=== PATIENT | male | born 1995 | race Caucasian/White ===

== ENCOUNTER 2017-04-20 17:00 | Emergency (ER) | payer OTHER ==
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
--- NOTE | 2017-04-20 19:14 | ED ORDER SUMMARY ---
..... Patient: GAYATRI AYALA OrderSheet [facility] VisitID: [id number] [place] [address] 21y, M Registration Date/Time: 04/20/2017 ORDER SHEET Weight: 47.6 kg (stated) Allergies: Penicillins GENERAL ORDERS: Shoulder 2V or more Left Urgent (17:07 04/20/2017 HBivens A.R.N.P.) (Ack 17:13 LNations ER Tech1) (17:24 DDean R.N.) Chest 1V Urgent (17:07 04/20/2017 HBivens A.R.N.P.) (Ack 17:13 LNations ER Tech1) (17:24 DDean R.N.) CBC w Diff Urgent (17:08 04/20/2017 HBivens A.R.N.P.) (Ack 17:13 LNations ER Tech1) (17:24 DDean R.N.) CMP Urgent (17:08 04/20/2017 HBivens A.R.N.P.) (Ack 17:13 LNations ER Tech1) (17:24 DDean R.N.) Suture Set-up: (17:08 04/20/2017 HBivens A.R.N.P.) (Ack 17:13 LNations ER Tech1) (17:24 DDean R.N.) MEDICATION ORDERS: Lidocaine Injection 1% plain (NOW) (17:08 04/20/2017 HBivens A.R.N.P.) (Ack 17:19 JBoardley R.N.) (17:26 DDean R.N.) Tdap IM 0.5 mL (NOW) (17:43 04/20/2017 HBivens A.R.N.P.) (17:51 DDean R.N.) Hydrocodone-APAP PO 5/325 mg (NOW, HIGH ALERT MEDICATION) (19:04 04/20/2017 HBivens A.R.N.P.) (19:44 DDean R.N.) IV FLUIDS: IV NS : initial bolus 1000 mL (1000 mL/hr), then none - (NOW) (17:07 04/20/2017 HBivens A.R.N.P.) (Ack 17:19 JBoardley R.N.) (17:25 DDean R.N.) IV Saline Lock (17:08 04/20/2017 HBivens A.R.N.P.) (Ack 17:19 JBoardley R.N.) (17:24 DDean R.N.) Zofran IV 4 mg (NOW) (17:42 04/20/2017 HBivens A.R.N.P.) (17:49 DDean R.N.) Ancef IV 1 gm/50mL (NOW) (17:42 04/20/2017 HBivens A.R.N.P.) (17:52 DDean R.N.) Dilaudid IV 0.5 mg (HIGH ALERT MEDICATION, NOW) (17:42 04/20/2017 HBivens A.R.N.P.) (17:50 DDean R.N.) Toradol IV 30 mg (NOW) (19:03 04/20/2017 HBivens A.R.N.P.) (Cancelled: Other19:44 DDean R.N.) ORDER SHEET NOTES: [Electronically signed by Lisa Calixto R.N. (19:46 04/20/2017)] [Electronically signed by Britt ChisholmR.N.P. (20:38 04/20/2017)] [Electronically locked/signed by Lisa Calixto R.N. (19:46 04/20/2017)]
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
--- NOTE | 2017-04-20 19:14 | ED ORDER SUMMARY ---
..... Patient: GAYATRI AYALA OrderSheet [facility] VisitID: [id number] [place] [address] 21y, M Registration Date/Time: 04/20/2017 ORDER SHEET Weight: 47.6 kg (stated) Allergies: Penicillins GENERAL ORDERS: Shoulder 2V or more Left Urgent (17:07 04/20/2017 HBivens A.R.N.P.) (Ack 17:13 LNations ER Tech1) (17:24 DDean R.N.) Chest 1V Urgent (17:07 04/20/2017 HBivens A.R.N.P.) (Ack 17:13 LNations ER Tech1) (17:24 DDean R.N.) CBC w Diff Urgent (17:08 04/20/2017 HBivens A.R.N.P.) (Ack 17:13 LNations ER Tech1) (17:24 DDean R.N.) CMP Urgent (17:08 04/20/2017 HBivens A.R.N.P.) (Ack 17:13 LNations ER Tech1) (17:24 DDean R.N.) Suture Set-up: (17:08 04/20/2017 HBivens A.R.N.P.) (Ack 17:13 LNations ER Tech1) (17:24 DDean R.N.) MEDICATION ORDERS: Lidocaine Injection 1% plain (NOW) (17:08 04/20/2017 HBivens A.R.N.P.) (Ack 17:19 JBoardley R.N.) (17:26 DDean R.N.) Tdap IM 0.5 mL (NOW) (17:43 04/20/2017 HBivens A.R.N.P.) (17:51 DDean R.N.) Hydrocodone-APAP PO 5/325 mg (NOW, HIGH ALERT MEDICATION) (19:04 04/20/2017 HBivens A.R.N.P.) (19:44 DDean R.N.) IV FLUIDS: IV NS : initial bolus 1000 mL (1000 mL/hr), then none - (NOW) (17:07 04/20/2017 HBivens A.R.N.P.) (Ack 17:19 JBoardley R.N.) (17:25 DDean R.N.) IV Saline Lock (17:08 04/20/2017 HBivens A.R.N.P.) (Ack 17:19 JBoardley R.N.) (17:24 DDean R.N.) Zofran IV 4 mg (NOW) (17:42 04/20/2017 HBivens A.R.N.P.) (17:49 DDean R.N.) Ancef IV 1 gm/50mL (NOW) (17:42 04/20/2017 HBivens A.R.N.P.) (17:52 DDean R.N.) Dilaudid IV 0.5 mg (HIGH ALERT MEDICATION, NOW) (17:42 04/20/2017 HBivens A.R.N.P.) (17:50 DDean R.N.) Toradol IV 30 mg (NOW) (19:03 04/20/2017 HBivens A.R.N.P.) (Cancelled: Other19:44 DDean R.N.) ORDER SHEET NOTES: [Electronically signed by Lisa Calixto R.N. (19:46 04/20/2017)] [Electronically signed by Britt ChisholmR.N.P. (20:38 04/20/2017)] [Electronically locked/signed by Lisa Calixto R.N. (19:46 04/20/2017)]
--- NOTE | 2017-04-20 20:39 | ED MAR SUMMARY ---
..... Medication Administration Record [facility] [address] [place] [address] Patient: GAYATRI AYALA Visit ID: [id number] 21y, M Weight: 47.6 kg Height/Length: 67 in BMI: 16.5 ALLERGIES: Penicillins Start 17:07 04/20/2017 Lisa Calixto R.N., Stop 18:45 04/20/2017 Lisa Calixto R.N. Medication Administered: IV NS (SALINE), Dose: IV Fluids over 1 hour(s), Rate: 1000 mL/hr, Dispensed: 1000 mL bag, Site: #1 right AC. Medication Ordered: IV NS : initial bolus 1000 mL (1000 mL/hr), then none - (NOW). Given 17:15 04/20/2017 Lisa Calixto R.N. Medication Administered: LIDOCAINE [INJECTION], Dose: 1 % Injectable Injection. Medication Ordered: Lidocaine Injection 1% plain (NOW). Given 17:44 04/20/2017 Lisa Calixto R.N. Medication Administered: ZOFRAN [IVP] (ONDANSETRON HCL), Dose: 4 mg IVP over 1 minute(s), Site: #1 right AC. Medication Ordered: Zofran IV 4 mg (NOW). Given 17:45 04/20/2017 Lisa Calixto R.N. Medication Administered: DILAUDID [IVP] (HYDROMORPHONE HCL PF), Dose: 0.5 mg IVP over 1 minute(s), Site: #1 right AC. Medication Ordered: Dilaudid IV 0.5 mg (HIGH ALERT MEDICATION, NOW). Given 17:46 04/20/2017 Lisa Calixto R.N. Medication Administered: TDAP [IM], Dose: 0.5 mL IM. Medication Ordered: Tdap IM 0.5 mL (NOW). Start 17:52 04/20/2017 Lisa Calixto R.N., Stop 18:15 04/20/2017 Lisa Calixto R.N. Medication Administered: ANCEF [IVPB] (CEFAZOLIN SODIUM), Dose: 1 gm IVPB over 20 minute(s), Rate: 150 mL/hr, Dispensed: 50 mL bag, Site: #1 right AC. Medication Ordered: Ancef IV 1 gm/50mL (NOW). Given 19:05 04/20/2017 Durga, Lisa RBee. Medication Administered: HYDROCODONE-APAP [PO] (HYDROCODONE-ACETAMINOPHEN), Dose: 1 tab 5/325 mg Tablets PO. Medication Ordered: Hydrocodone-APAP PO 5/325 mg (NOW, HIGH ALERT MEDICATION).
--- NOTE | 2017-04-20 20:39 | ED MED RECONCILIATION SUMMARY ---
Patient: GAYATRI AYALA Medication Reconciliation Report [facility] VisitID: [id number] [place] [address] 21y, M Registration Date/Time: 04/20/2017 Weight: 47.6 kg Height/Length: 67 in. BMI: 16.5 ALLERGIES: Penicillins The patient's Home Medications are listed below: NONE. The source(s) of the original Home Medication information: Not obtained. The following Medications were given to the patient in the Emergency Department: IV NS IV Fluids bolus 0, then 1000 mL/hr, administered: 04/20/2017 5:07:00 PM Lidocaine [Injection] Injection 1 %, administered: 04/20/2017 5:15:00 PM Zofran [IVP] IVP 4 mg, administered: 04/20/2017 5:44:00 PM Dilaudid [IVP] IVP 0.5 mg, administered: 04/20/2017 5:45:00 PM TDAP [IM] IM 0.5 mL, administered: 04/20/2017 5:46:00 PM Ancef [IVPB] IVPB bolus 0, then 1 gm 150 mL/hr, administered: 04/20/2017 5:52:00 PM Hydrocodone-APAP [PO] PO 1 tab, administered: 04/20/2017 7:05:00 PM The following Medications were prescribed to the patient: Zofran 4 mg: Take 1 orally every six hours as needed for nausea/vomiting. Dispense ten (10). No refills. Substitution is permissible. -- Britt Chisholm, A.R.N.P. Cephalexin 500mg: take 1 tab orally every 6 hours for 7 days. No refills -- Britt Chisholm, A.R.N.P. Fulda 5 mg / 325 mg tablets: take 1 to 2 orally every 6 hours as needed for pain. Dispense fifteen (15). No refills. Substitution is permissible. -- Britt Chisholm, A.R.N.P. Motrin 800 mg tablets: take 1 tablet orally every 8 hours as needed for pain. Dispense thirty (30). No refills. Substitution is permissible. -- Britt Chisholm, A.R.N.P.
--- NOTE | 2017-04-20 20:39 | ED MAR SUMMARY ---
..... Medication Administration Record [facility] [address] [place] [address] Patient: GAYATRI AYALA Visit ID: [id number] 21y, M Weight: 47.6 kg Height/Length: 67 in BMI: 16.5 ALLERGIES: Penicillins Start 17:07 04/20/2017 Lisa Calixto R.N., Stop 18:45 04/20/2017 Lisa Calixto R.N. Medication Administered: IV NS (SALINE), Dose: IV Fluids over 1 hour(s), Rate: 1000 mL/hr, Dispensed: 1000 mL bag, Site: #1 right AC. Medication Ordered: IV NS : initial bolus 1000 mL (1000 mL/hr), then none - (NOW). Given 17:15 04/20/2017 Lisa Calixto R.N. Medication Administered: LIDOCAINE [INJECTION], Dose: 1 % Injectable Injection. Medication Ordered: Lidocaine Injection 1% plain (NOW). Given 17:44 04/20/2017 Lisa Calixto R.N. Medication Administered: ZOFRAN [IVP] (ONDANSETRON HCL), Dose: 4 mg IVP over 1 minute(s), Site: #1 right AC. Medication Ordered: Zofran IV 4 mg (NOW). Given 17:45 04/20/2017 Lisa Calixto R.N. Medication Administered: DILAUDID [IVP] (HYDROMORPHONE HCL PF), Dose: 0.5 mg IVP over 1 minute(s), Site: #1 right AC. Medication Ordered: Dilaudid IV 0.5 mg (HIGH ALERT MEDICATION, NOW). Given 17:46 04/20/2017 Lisa Calixto R.N. Medication Administered: TDAP [IM], Dose: 0.5 mL IM. Medication Ordered: Tdap IM 0.5 mL (NOW). Start 17:52 04/20/2017 Lisa Calixto R.N., Stop 18:15 04/20/2017 Lisa Calixto R.N. Medication Administered: ANCEF [IVPB] (CEFAZOLIN SODIUM), Dose: 1 gm IVPB over 20 minute(s), Rate: 150 mL/hr, Dispensed: 50 mL bag, Site: #1 right AC. Medication Ordered: Ancef IV 1 gm/50mL (NOW). Given 19:05 04/20/2017 Durga, Lisa RBee. Medication Administered: HYDROCODONE-APAP [PO] (HYDROCODONE-ACETAMINOPHEN), Dose: 1 tab 5/325 mg Tablets PO. Medication Ordered: Hydrocodone-APAP PO 5/325 mg (NOW, HIGH ALERT MEDICATION).
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
--- NOTE | 2017-04-20 20:39 | ED MED RECONCILIATION SUMMARY ---
Patient: GAYATRI AYALA Medication Reconciliation Report [facility] VisitID: [id number] [place] [address] 21y, M Registration Date/Time: 04/20/2017 Weight: 47.6 kg Height/Length: 67 in. BMI: 16.5 ALLERGIES: Penicillins The patient's Home Medications are listed below: NONE. The source(s) of the original Home Medication information: Not obtained. The following Medications were given to the patient in the Emergency Department: IV NS IV Fluids bolus 0, then 1000 mL/hr, administered: 04/20/2017 5:07:00 PM Lidocaine [Injection] Injection 1 %, administered: 04/20/2017 5:15:00 PM Zofran [IVP] IVP 4 mg, administered: 04/20/2017 5:44:00 PM Dilaudid [IVP] IVP 0.5 mg, administered: 04/20/2017 5:45:00 PM TDAP [IM] IM 0.5 mL, administered: 04/20/2017 5:46:00 PM Ancef [IVPB] IVPB bolus 0, then 1 gm 150 mL/hr, administered: 04/20/2017 5:52:00 PM Hydrocodone-APAP [PO] PO 1 tab, administered: 04/20/2017 7:05:00 PM The following Medications were prescribed to the patient: Zofran 4 mg: Take 1 orally every six hours as needed for nausea/vomiting. Dispense ten (10). No refills. Substitution is permissible. -- Britt Chisholm, A.R.N.P. Cephalexin 500mg: take 1 tab orally every 6 hours for 7 days. No refills -- Britt Chisholm, A.R.N.P. [place] 5 mg / 325 mg tablets: take 1 to 2 orally every 6 hours as needed for pain. Dispense fifteen (15). No refills. Substitution is permissible. -- Britt Chisholm, A.R.N.P. Motrin 800 mg tablets: take 1 tablet orally every 8 hours as needed for pain. Dispense thirty (30). No refills. Substitution is permissible. -- Britt Chisholm, A.R.N.P.
== END 2017-04-20 19:05 | disposition home or self-care (01) ==
LOC: ED SRH 17:00
DX: S21.112A Laceration without foreign body of left front wall of thorax without penetration into thoracic cavity, initial encounter (principal); S70.12XA Contusion of left thigh, initial encounter; S80.01XA Contusion of right knee, initial encounter; S90.31XA Contusion of right foot, initial encounter; V28.4XXA Motorcycle driver injured in noncollision transport accident in traffic accident, initial encounter; Y93.89 Activity, other specified; Y99.9 Unspecified external cause status; Y92.9 Unspecified place or not applicable; Z72.0 Tobacco use